=== PATIENT | male | born 1985 | race African-American/Black ===

== ENCOUNTER 2017-03-05 08:19 | Emergency (ER) | payer SELFPAY ==
[~2017-03-05] VITALS: Ht 172.7 cm; Wt 70.0 kg
[2017-03-05 09:59] LABS: BASOPHILS % 0.3 % (0.0-2.0); EOSINOPHILS % 1.3 % (0.0-5.0); HEMATOCRIT. 33.5 % (42.0-52.0); HEMOGLOBIN. 11.1 g/dL (14.0-18.0); LYMPHOCYTES % 18.6 % (20.0-50.0); MEAN CORPUSCULAR HEMOGLOBIN 27.7 pg (28.0-32.0); MEAN CORPUSCULAR VOLUME 83.9 fL (80.0-94.0); MONOCYTES % 8.2 % (2.0-8.0); NEUTROPHILS % 71.6 % (40.0-76.0); PLATELET 333 x1000/uL (130-400); RED CELL DISTRIBUTION WIDTH 18.7 % (11.6-14.6)
[2017-03-05 10:14] LABS: CARBON DIOXIDE 29 mEq/L (21-32); CHLORIDE 104 mEq/L (98-107)
[2017-03-05] MEDS ORDERED: HYDROCODONE/APAP 7.5/325MG 1 TAB TABLET PO ONE (11:30)
[2017-03-05 16:29] VITALS: BP 131/66
== END 2017-03-05 16:32 | disposition home or self-care (01) ==
LOC: ER 08:34
DX: L03.115 Cellulitis of right lower limb (principal)
CPT/HCPCS: 36415; 73552; 73590; 80053; 85025; 93971; 99285; Z7610

== ENCOUNTER 2017-05-18 00:57 | Emergency (ER) | payer SELFPAY ==
[~2017-05-18] VITALS: Ht 172.7 cm; Wt 68.0 kg
[2017-05-18] MEDS ORDERED: LORAZEPAM 2MG/ML CPJ IV ONE (01:45)
[2017-05-18 02:20] LABS: CLARITY URINE CLEAR (CLEAR); COLOR URINE YELLOW (YELLOW); GLUCOSE URINE NEGATIVE (NEGATIVE); KETONES URINE TRACE (NEGATIVE); LEUKOCYTE ESTERASE URINE 1+ (NEGATIVE); NITRITE URINE NEGATIVE (NEGATIVE); OCCULT BLOOD URINE 2+ (NEGATIVE); PH URINE 5.5 (4.5-8.0); PROTEIN URINE TRACE (NEGATIVE); SPECIFIC GRAVITY URINE 1.027 (1.005-1.030)
[2017-05-18 02:21] LABS: BASOPHILS % 0.5 % (0.0-2.0); EOSINOPHILS % 1.2 % (0.0-5.0); HEMATOCRIT. 33.4 % (42.0-52.0); HEMOGLOBIN. 11.2 g/dL (14.0-18.0); LYMPHOCYTES % 19.3 % (20.0-50.0); MEAN CORPUSCULAR HEMOGLOBIN 28.2 pg (28.0-32.0); MEAN PLATELET VOLUME 6.6 fl (7.4-10.4); MONOCYTES % 6.2 % (2.0-8.0); NEUTROPHILS % 72.8 % (40.0-76.0); PLATELET 310 x1000/uL (130-400); RED BLOOD CELL COUNT 3.98 mill/uL (4.7-6.1)
[2017-05-18 02:27] LABS: PROTHROMBIN TIME 10.6 sec (9.4-11.6)
[2017-05-18 02:31] LABS: *AMPHETAMINES SCREEN URINE PRESUMTIVE POSITIVE (NEGATIVE); *BARBITURATES SCREEN URINE NEGATIVE (NEGATIVE); *COCAINE SCREEN URINE NEGATIVE (NEGATIVE); CANNABINOID URINE SCREEN PRESUMTIVE POSITIVE (NEGATIVE); METHADONE URINE SCREEN NEGATIVE (NEGATIVE); OPIATES URINE SCREEN NEGATIVE (NEGATIVE); PHENCYCLIDINE URINE SCREEN NEGATIVE (NEGATIVE)
[2017-05-18 02:55] LABS: CARBON DIOXIDE 29 mEq/L (21-32); CHLORIDE 103 mEq/L (98-107); ETHANOL BLOOD < 10 mg/dL
[2017-05-18 03:09] LABS: *BENZODIAZEPINES SCREEN URINE NEGATIVE (NEGATIVE)
[2017-05-18 09:06] VITALS: BP 116/68
== END 2017-05-18 17:04 | disposition home or self-care (01) ==
LOC: ER 01:10
DX: T43.621A Poisoning by amphetamines, accidental (unintentional), initial encounter (principal); G93.40 Encephalopathy, unspecified; Y92.89 Other specified places as the place of occurrence of the external cause; Z99.3 Dependence on wheelchair
CPT/HCPCS: 36415; 70450; 71010; 80053; 80305; 80307; 80329; 81001; 82962; 85025; 85610; 93005; 93971; 96374; 99285; G0482; J2060; Z7610; A4315

== ENCOUNTER 2017-08-15 04:48 | Emergency (ER) | payer MEDICAID ==
[~2017-08-15] VITALS: Ht 177.8 cm; Wt 93.0 kg
[2017-08-15] MEDS ORDERED: ACETAMINOPHEN 500MG TABLET PO ONE (10:00)
[2017-08-15] MEDS ORDERED: IBUPROFEN 600MG TABLET PO ONE (10:00)
[2017-08-15 11:12] VITALS: BP 123/69
== END 2017-08-15 11:13 | disposition home or self-care (01) ==
LOC: ER 05:13
DX: M25.561 Pain in right knee (principal); G89.29 Other chronic pain; M79.604 Pain in right leg; Z98.890 Other specified postprocedural states; Z87.828 Personal history of other (healed) physical injury and trauma
CPT/HCPCS: 73560; 93971; 99284

== ENCOUNTER 2017-11-21 23:01 | Emergency (ER) | payer MEDICAID, OTHER ==
[~2017-11-21] VITALS: Ht 177.8 cm; Wt 79.0 kg
[2017-11-22] MEDS ORDERED: TRAMADOL 50MG TABLET PO ONE (00:15)
[2017-11-22] MEDS ORDERED: IBUPROFEN 600MG TABLET PO ONE (00:15)
[2017-11-22 00:17] LABS: BASOPHILS % 0.5 % (0.0-2.0); EOSINOPHILS % 0.1 % (0.0-5.0); HEMATOCRIT. 39.3 % (42.0-52.0); HEMOGLOBIN. 13.2 g/dL (14.0-18.0); LYMPHOCYTES % 14.1 % (20.0-50.0); MEAN CORPUSCULAR HEMOGLOBIN 28.8 pg (28.0-32.0); MEAN CORPUSCULAR VOLUME 85.6 fL (80.0-94.0); MEAN PLATELET VOLUME 7.1 fl (7.4-10.4); MONOCYTES % 11.7 % (2.0-8.0); NEUTROPHILS % 73.6 % (40.0-76.0); PLATELET 252 x1000/uL (130-400); RED CELL DISTRIBUTION WIDTH 15.1 % (11.6-14.6)
[2017-11-22 00:19] LABS: CHLORIDE 100 mEq/L (98-107)
[2017-11-22 02:03] LABS: CLARITY URINE CLEAR (CLEAR); COLOR URINE YELLOW (YELLOW); KETONES URINE NEGATIVE (NEGATIVE); LEUKOCYTE ESTERASE URINE NEGATIVE (NEGATIVE); NITRITE URINE NEGATIVE (NEGATIVE); OCCULT BLOOD URINE 1+ (NEGATIVE); PROTEIN URINE TRACE (NEGATIVE); SPECIFIC GRAVITY URINE 1.011 (1.005-1.030); UROBILINOGEN URINE 0.2 E.U./dL (0.2-1.0)
[2017-11-22 06:43] VITALS: BP 124/61
== END 2017-11-22 06:44 | disposition home or self-care (01) ==
LOC: ER 23:01
DX: N43.3 Hydrocele, unspecified (principal); R51 Headache
CPT/HCPCS: 36415; 76870; 80048; 81003; 85025; 93976; 99285

== ENCOUNTER 2017-11-22 13:49 | Emergency (ER) | payer MEDICAID, OTHER ==
[~2017-11-22] VITALS: Ht 177.8 cm; Wt 77.0 kg
[2017-11-22] MEDS ORDERED: ONDANSETRON 4MG ODT PO ONE (16:00)
[2017-11-22] MEDS ORDERED: ACETAMINOPHEN 500MG TABLET PO ONE (16:00)
[2017-11-22 16:24] LABS: CLARITY URINE CLEAR (CLEAR); COLOR URINE YELLOW (YELLOW); KETONES URINE NEGATIVE (NEGATIVE); LEUKOCYTE ESTERASE URINE NEGATIVE (NEGATIVE); NITRITE URINE NEGATIVE (NEGATIVE); OCCULT BLOOD URINE 2+ (NEGATIVE); PH URINE 5.5 (4.5-8.0); PROTEIN URINE 3+ (NEGATIVE); SPECIFIC GRAVITY URINE 1.022 (1.005-1.030); UROBILINOGEN URINE 0.2 E.U./dL (0.2-1.0)
[2017-11-22 18:32] VITALS: BP 112/63
== END 2017-11-22 18:45 | disposition home or self-care (01) ==
LOC: ER 14:22
DX: B34.9 Viral infection, unspecified (principal); J02.8 Acute pharyngitis due to other specified organisms; F17.210 Nicotine dependence, cigarettes, uncomplicated; F12.90 Cannabis use, unspecified, uncomplicated
CPT/HCPCS: 81003; 87804; 99284; Q0162; Z7610

== ENCOUNTER 2017-11-22 22:53 | Emergency (ER) | payer MEDICAID, OTHER ==
[~2017-11-22] VITALS: Ht 177.8 cm; Wt 77.0 kg
[2017-11-23 01:33] LABS: BASOPHILS % 0.5 % (0.0-2.0); HEMATOCRIT. 44.4 % (42.0-52.0); HEMOGLOBIN. 14.9 g/dL (14.0-18.0); LYMPHOCYTES % 14.7 % (20.0-50.0); MEAN CORPUSCULAR HEMOGLOBIN 28.9 pg (28.0-32.0); MEAN CORPUSCULAR VOLUME 85.9 fL (80.0-94.0); MEAN PLATELET VOLUME 7.4 fl (7.4-10.4); MONOCYTES % 10.4 % (2.0-8.0); NEUTROPHILS % 74.4 % (40.0-76.0); PLATELET 208 x1000/uL (130-400); RED BLOOD CELL COUNT 5.17 mill/uL (4.7-6.1); RED CELL DISTRIBUTION WIDTH 15.1 % (11.6-14.6)
[2017-11-23 01:38] LABS: CHLORIDE 98 mEq/L (98-107)
[2017-11-23 01:44] LABS: ETHANOL BLOOD < 10 mg/dL
[2017-11-23 01:51] LABS: CLARITY URINE CLEAR (CLEAR); COLOR URINE YELLOW (YELLOW); KETONES URINE TRACE (NEGATIVE); LEUKOCYTE ESTERASE URINE NEGATIVE (NEGATIVE); NITRITE URINE NEGATIVE (NEGATIVE); OCCULT BLOOD URINE 1+ (NEGATIVE); PH URINE 5.5 (4.5-8.0); PROTEIN URINE 3+ (NEGATIVE); SPECIFIC GRAVITY URINE 1.025 (1.005-1.030); UROBILINOGEN URINE 0.2 E.U./dL (0.2-1.0)
[2017-11-23 02:37] LABS: *AMPHETAMINES SCREEN URINE PRESUMTIVE POSITIVE (NEGATIVE); *BARBITURATES SCREEN URINE NEGATIVE (NEGATIVE); *BENZODIAZEPINES SCREEN URINE NEGATIVE (NEGATIVE); *COCAINE SCREEN URINE NEGATIVE (NEGATIVE); CANNABINOID URINE SCREEN NEGATIVE (NEGATIVE); METHADONE URINE SCREEN NEGATIVE (NEGATIVE); OPIATES URINE SCREEN NEGATIVE (NEGATIVE); PHENCYCLIDINE URINE SCREEN NEGATIVE (NEGATIVE)
[2017-11-23 03:40] VITALS: BP 131/76
== END 2017-11-23 03:41 | disposition home or self-care (01) ==
LOC: ER 22:53
DX: J02.9 Acute pharyngitis, unspecified (principal); F15.10 Other stimulant abuse, uncomplicated; F17.200 Nicotine dependence, unspecified, uncomplicated; F12.10 Cannabis abuse, uncomplicated; Z91.14 Patient's other noncompliance with medication regimen
CPT/HCPCS: 36415; 71045; 80053; 80305; 80307; 80329; 81003; 85025; 87070; 87430; 99285; G0482

== ENCOUNTER 2018-04-30 22:36 | Emergency (ER) | payer MEDICAID ==
[~2018-04-30] VITALS: Ht 175.3 cm; Wt 77.0 kg
[2018-05-01] MEDS ORDERED: KETOROLAC 30MG/ML VIAL IV STA (00:57)
[2018-05-01 01:18] LABS: BASOPHILS % 0.4 % (0.0-2.0); EOSINOPHILS % 0.7 % (0.0-5.0); HEMATOCRIT. 38.8 % (42.0-52.0); LYMPHOCYTES % 15.5 % (20.0-50.0); MEAN CORPUSCULAR HEMOGLOBIN 28.4 pg (28.0-32.0); MEAN CORPUSCULAR VOLUME 84.5 fL (80.0-94.0); MEAN PLATELET VOLUME 7.1 fl (7.4-10.4); MONOCYTES % 8.7 % (2.0-8.0); NEUTROPHILS % 74.7 % (40.0-76.0); PLATELET 343 x1000/uL (130-400); RED BLOOD CELL COUNT 4.59 mill/uL (4.7-6.1); RED CELL DISTRIBUTION WIDTH 14.7 % (11.6-14.6)
[2018-05-01 01:24] LABS: CHLORIDE 105 mEq/L (98-107)
[2018-05-01 01:26] LABS: INR 1.1
[2018-05-01] MEDS ORDERED: AZITHROMYCIN 500 MG TABLET PO ONE (01:45)
[2018-05-01] MEDS ORDERED: ACYCLOVIR 400 MG TABLET PO ONE (01:45)
[2018-05-01] MEDS ORDERED: CEFTRIAXONE SODIUM 1 G/VIAL IM ONE (01:45)
[2018-05-01 05:41] VITALS: BP 106/52
== END 2018-05-01 05:44 | disposition home or self-care (01) ==
LOC: ER 22:36
DX: K40.90 Unilateral inguinal hernia, without obstruction or gangrene, not specified as recurrent (principal); R30.0 Dysuria; R03.0 Elevated blood-pressure reading, without diagnosis of hypertension; F12.90 Cannabis use, unspecified, uncomplicated; F17.210 Nicotine dependence, cigarettes, uncomplicated
CPT/HCPCS: 36415; 74176; 76870; 80053; 83690; 85025; 85610; 93976; 96372; 96374; 99285; J0696; J1885

== ENCOUNTER 2020-01-23 03:21 | Emergency (ER) | payer MEDICAID ==
[~2020-01-23] VITALS: Ht 172.7 cm; Wt 118.0 kg
[2020-01-23 06:30] VITALS: BP 144/73
== END 2020-01-23 06:55 | disposition home or self-care (01) ==
LOC: ER 03:21
DX: L97.818 Non-pressure chronic ulcer of other part of right lower leg with other specified severity (principal)
CPT/HCPCS: 93970; 99284